=== PATIENT | female | born 2000 | race African-American/Black ===

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

== ENCOUNTER 2020-04-05 04:33 | Emergency (ER) | payer OTHER ==
[~2020-04-05] VITALS: Ht 170.2 cm; Wt 79.1 kg
[~2020-04-05 04:33] MED LIST: MACR100C43 PO; PYRI1TAB5 PO
[2020-04-05 05:30] VITALS: BP 135/77
--- NOTE | 2020-04-06 14:04 | ECGEPIP ---
[facility] - ED Test Date: 2020-04-05 Pat Name: SATNAM BRIONES Department: Room: - Gender: Female Envelope Folder: RADHA : 2000 Requested By: KI MORELOS Order Number: [id number] Reading MD: Abimbola Hamilton Measurements Intervals [place] Rate: 84 P: 7 WA: 121 QRS: 69 QRSD: 80 T: 39 QT: 338 QTc: 402 Interpretive Statements SINUS RHYTHM baseline artifact may affect interpretation NO PRIOR Electronically Signed on 04-06-2020 14:04:22 EST by Abimbola Hamilton
== END 2020-04-05 05:56 | disposition home or self-care (01) ==
LOC: M ED 04:33 → EEVIPCON 04:33 → M ED 05:56
DX: U07.1 COVID-19 (principal)
CPT/HCPCS: 93005; 99284; U0003

== ENCOUNTER 2020-10-07 22:05 | Outpatient (CLI) | payer OTHER ==
[~2020-10-07] VITALS: Ht 170.2 cm; Wt 77.1 kg
[2020-10-07 22:17] VITALS: BP 120/71
[2020-10-07] MEDS ORDERED: PREN29CH2 PO (22:26)
[2020-10-07] MEDS ORDERED: IRON27TA2 PO (22:26)
[2020-10-07 23:14] VITALS: BP 100/55
--- NOTE | 2020-10-07 23:24 | IPNPDOC ---
Text Note Date of Service The patient was seen on 10/07/20. NOTE 20 yo at 24+0 weeks gestation presents to L&D with the complaint of lower pelvic pain on the right side that is dull and has been present since about 1300 today. She reports she has had this pain earlier in and outside of . She denies any other symptoms whatsoever. Specific symptoms denied include fevers/chills, SOB, recent intercourse, chest pain, dysuria, n/v, constipation, anorexia, vaginal bleeding, vaginal discharge, dysuria, diarrhea, or headaches. Chaperoned by RN Vitals - VSS, afebrile, normotensive, non tachycardic General - AAOX3, sitting up in bed, pleasant and conversant, NAD Abdomen - gravid uterus appropriate size for gestational age, no fundal tenderness. No tenderness to palpation anywhere in the abdomen Extremities - No edema Cervix - Refused cervical exam FHR tracing - appropriate for gestational age. No decels. No ctx on toco. Bedside TAUS - Viable SIUP in breech presentation. +FCA measured at 150 bpm. +gross movement. Placenta posterior with no evidence of abruption. Cervical length appeared to be >3.5cm with no funneling or dynamic changes. UA - Unremarkable Suspect round ligament pain. No evidence of labor or infection. No evidence of an acute intraabdominal process. Reassuring status for gestational age. Recommended tylenol and heating pads for symptoms. Discharged home with return precautions. Follow up at next regular appointment. Return to care sooner for worsening symptoms or any other urgent concerns. ALl questions answered. 30 minutes of patient care Fadumo Hoyos, I+O Fadumo OZUNA, I+O Vital Signs Date Time Temp Pulse Resp B/P (MAP) Pulse Ox O2 Delivery O2 Flow Rate FiO2 10/07/20 23:14 70 16 100/55 (70) 10/07/20 22:17 98.4 98 Room Air GIUSEPPE LOVE DO October 07, 2020 23:24
== END 2020-10-07 23:15 | disposition home or self-care (01) ==
LOC: M LDO 22:05
PROVIDERS: ATTEND Obstetrics & Gynecology
DX: O26.892 Other specified pregnancy related conditions, second trimester (principal); Z3A.24 24 weeks gestation of pregnancy; R10.2 Pelvic and perineal pain
CPT/HCPCS: 76815; 81001; G0378; G0463

== ENCOUNTER 2020-12-08 11:48 | Outpatient (CLI) | payer OTHER ==
[~2020-12-08] VITALS: Ht 170.2 cm; Wt 81.5 kg
[~2020-12-08 11:48] MED LIST changes: +IRON27TA2 PO; +PREN29CH2 PO
[2020-12-08 11:59] VITALS: BP 125/71
[2020-12-08 13:41] LABS: APPEARANCE, URINE CLEAR (CLEAR); BACTERIA, URINE AUTO 1+ (NEGATIVE); BILIRUBIN, URINE AUTO NEGATIVE (NEGATIVE); BLOOD, URINE BLOOD NEGATIVE (NEGATIVE); COLOR, URINE STRAW (YELLOW); GLUCOSE, URINE (UA) AUTO NEGATIVE (NEGATIVE); KETONE, URINE AUTO NEGATIVE (NEGATIVE); LEUKOCYTE ESTERASE, URINE AUTO NEGATIVE (NEGATIVE); NITRITE, URINE AUTO NEGATIVE (NEGATIVE); PROTEIN, URINE AUTO NEGATIVE (NEGATIVE); RBC, URINE AUTO 0 /HPF (0-3); SPECIFIC GRAVITY URINE AUTO 1.003 (1.002-1.035); SQUAMOUS EPITHELIAL CELL UR AU 1 /HPF (0-6); UROBILINOGEN, URINE AUTO 0.2 mg/dL (0.0-2.0); WBC, URINE AUTO 1 /HPF (0-3)
--- NOTE | 2020-12-08 17:58 | IPNPDOC ---
Subjective Date Seen The patient was seen on 12/08/20. Subjective Chief Complaint/HPI Pt is a 20yo G 1P0 at 32w6d by LMP c/w 9wk US, ALEXANDER 11 Sep presents to triage with generalized complaints of low back pain/cramping and intermittent pain/numbness in her thighs/buttocks. She also describes lower abdominal cramping which has been occurring intermittently throughout the past several weeks. She was given a belly band yesterday and states this provides some improvement. She is unsure if she is having contractions, and is unsure how frequently the pain occurs. States it is spontaneous and it is not occurring right now. She denies LOF, VB or discharge. +GFM *Of note, pt reported to RN that she 'does not want to be anymore'. General: Reports: Normal Appetite; Denies: Chills, Night Sweats, Fatigue, Malaise Constitutional: Denies: Chills, Fever, Night Sweats Pulmonary: Denies: Dyspnea, Cough Cardiovascular: Denies: Chest Pain, Palpitations, Orthopnea, Paroxysmal Noc. Dyspnea, Lt Headedness Gastrointestinal: Denies: Nausea, Vomiting, Abdominal Pain, Diarrhea, Constipation Genitourinary: Denies: Dysuria, Frequency, Incontinence, Retention Neurological: Reports: Numbness Psych: Reports: Mood Normal; Denies: Depression, Memory Issues Objective Physical Examination General Exam: Positive: Alert, No Acute Distress Chest Exam: Positive: Normal air movement Heart Exam: Positive: Rate Normal Abdomen Exam: Positive: Soft; Negative: Tenderness Female Exam: Positive: Nl Ext Genitalia, Discharge (small amount of milky white discharge. Wet prep + for clue cells. Attempted cervical exam - pt did not tolerate ); Negative: Lesions, Odor, Tenderness Psych Exam: Positive: Mental status NL, Mood NL, Oriented x 3 Other physical findings FHT: cat 1, normal baseline with + accels, no decels. No contractions on tocometer SVE: attempted, pt very anxious and unable to tolerate exam. Unable to complete cervical check Assessment /Plan Assessment 20yo at 32w6d presenting with generalized pain - low back pain, leg pain, abdominal cramping. FHT reassurring, no ctx on monitor. UA and wet prep/JUAN LUIS obtained. Pt wit + clue cells. JUAN LUIS and UA neg. Attempted SVE, pt does not tolerate exams. Overall low concern for labor at this time. Will treat for BV and provide flexeril for low back pain. Encouraged patient to continue hydrating and to follow up on Friday as sheduled for GS (for IUGR). US performed yesterday in clinic by me, no indication to repeat today. Pt's mother at bedside. Discussed concerns regarding patient's inability to tolerate exams and how she will tolerate labor when it occurs. Patient denies any hx of sexual abuse, simply has a fear of pain. Encouraged them to look into birthing classes/meditation/etc. Pt may also want to consider a wig comber. Pt to follow up as scheduled. Plan/VTE VTE Prophylaxis Ordered?: No VTE Exclusion Mechanical Proph: Other VS, I&O, 24H, Fishbone Vital Signs/I&O Vital Signs Date Time Temp Pulse Resp B/P (MAP) Pulse Ox O2 Delivery O2 Flow Rate FiO2 12/08/20 11:59 97.1 86 16 125/71 (89) Room Air Laboratory Data 24H LABS Laboratory Tests 2 12/08/20 13:18: Urine Color STRAW, Urine Appearance CLEAR, Urine pH 7.0, Urine Specific Tangent 1.003, Urine Protein NEGATIVE, Urine Glucose (Auto)(UA) NEGATIVE, Urine Ketones (Auto) NEGATIVE, Urine Blood NEGATIVE, Urine Nitrite NEGATIVE, Urine Bilirubin NEGATIVE, Urine Urobilinogen 0.2, Urine Leukocyte Esterase (Auto) NEGATIVE, Urine WBC (Auto) 1, Urine RBC (Auto) 0, Urine Hyaline Casts (Auto) 0, Urine Bacteria (Auto) 1+H, Urine Squamous Epithelial Cells 1, Urine Sperm (Auto) REGINO RODRIGUEZ M.D. Dec 08, 2020 17:58
== END 2020-12-08 15:00 | disposition home or self-care (01) ==
LOC: M LDO 11:48
PROVIDERS: ATTEND Obstetrics & Gynecology
DX: O26.893 Other specified pregnancy related conditions, third trimester (principal); M54.5 Low back pain; R25.2 Cramp and spasm; Z3A.32 32 weeks gestation of pregnancy; O36.5930 Maternal care for other known or suspected poor fetal growth, third trimester, not applicable or unspecified
CPT/HCPCS: 59025; 81001; G0378; G0463

== ENCOUNTER → 2020-12-12 | Outpatient (CLI) | payer OTHER ==
--- NOTE | 2020-12-12 16:35 | REP ---
INDICATION: PREG, GROWTH. COMPARISON: None. TECHNIQUE: Transabdominal scanning FINDINGS: Multiple ultrasonographic images of the gravid uterus shows a single living intrauterine gestation in the cephalic presentation. Doppler interrogation of the heart shows a heart rate of 139 beats per minute. The placenta is a left lateral and not low-lying. The cervix measures 3 cm in length and is closed. The subjective amniotic fluid volume is low normal. The calculated amniotic fluid index is 8.7 with an expected range 8.2 to 24.6. BPD: 7.8 cm 31 weeks 3 days HC: 28.1 cm 30 weeks 5 days AC: 27.7 cm 31 weeks 6 days FL: 6 cm 31 weeks 3 days The estimated weight is 1787 g which is less than the 3rd percentile for a 33 week 3 day gestational age. IMPRESSION: Limited OB ultrasound showing a single living intrauterine gestation as described above with an estimated gestational age of 31 weeks 3 days via composite criteria and an estimated date of delivery of 02/10/2021 by today's exam. <Electronically signed by Daniel Cabello > 12/12/20 0835
== END ==
LOC: M RAD 14:41
PROVIDERS: ATTEND Registered Nurse Maternal Newborn
DX: Z36.4 Encounter for antenatal screening for fetal growth retardation (principal); Z3A.31 31 weeks gestation of pregnancy

== ENCOUNTER → 2021-01-01 | Outpatient (CLI) | payer OTHER ==
--- NOTE | 2021-01-01 15:20 | REP ---
INDICATION: DECREASED MOVEMENT. TECHNIQUE: Transabdominal scanning FINDINGS: Multiple ultrasonographic images of the gravid uterus shows a single living intrauterine gestation in the cephalic presentation. Doppler interrogation of the heart shows a heart rate of 127 beats per minute. The subjective amniotic fluid volume is within normal limits. The calculated amniotic fluid index is 12.1 within expected range 7.6 to 24.8. The placenta is left lateral and not low lying. The cervix measures 3.3 cm in length and is closed. Doppler interrogation of the umbilical artery shows an A\B ratio of 2.68 and 2.45 both are within the normal range. biophysical profile score is 2 for breathing, 2 for movement, 2 for tone, and 2 for amniotic fluid volume giving a sum total of 8/8. IMPRESSION: Limited OB ultrasound and biophysical profile as described above. <Electronically signed by Daniel Cabello > 01/01/21 [id number]
== END ==
LOC: M RAD 14:26
PROVIDERS: ATTEND Obstetrics & Gynecology
DX: Z36.89 Encounter for other specified antenatal screening (principal); Z3A.36 36 weeks gestation of pregnancy

== ENCOUNTER 2021-01-12 16:04 | Inpatient (IN) | payer OTHER ==
[2021-01-12] VITALS (7 sets, daily range): BP systolic 120–131; BP diastolic 64–88
[~2021-01-12] VITALS: Ht 170.2 cm; Wt 86.2 kg
[2021-01-12] MEDS ORDERED: HOME MED LIST COMPLETE! XX SCH (18:40)
[2021-01-12] MEDS ORDERED: OXYTOCIN DRIP 30 UNITS in IV 1 EA IV PRN ×4 (18:50)
[2021-01-12] MEDS ORDERED: OXYTOCIN INJ 10 UNITS/ML VIAL (J2590) IV PRN (18:50)
[2021-01-12] MEDS ORDERED: METHYLERGONOVINE MALEATE 0.2 MG/ML VIAL (J2210) IM PRN (18:50)
[2021-01-12] MEDS ORDERED: LACTATED RINGER'S 1000 ML IV ONE (18:50)
[2021-01-12 20:20] LABS: HEMATOCRIT 33.3 % (36.0-47.0); HEMOGLOBIN 10.7 g/dl (12.0-15.5); MEAN CORPUSCULAR HEMOGLOBIN 26.7 pg (27.0-33.0); MEAN CORPUSCULAR HGB CONC 32.1 g/dl (32.0-36.5); PLATELET COUNT, AUTOMATED 316 10^3/uL (150-450); RED BLOOD COUNT 4.01 10^6/uL (4.00-5.40); WHITE BLOOD COUNT 6.7 10^3/uL (4.0-10.0)
--- NOTE | 2021-01-12 20:44 | HPEPDOC ---
Obstetrical History & Physical General Date of Admission Item Value Date Time White Blood Count 6.7 10^3/uL 01/12/212010 Red Blood Count 4.01 10^6/uL 01/12/212010 Hemoglobin 10.7 g/dl L 01/12/212010 Hematocrit 33.3 % L 01/12/212010 Mean Corpuscular Volume 83.0 fl 01/12/212010 Mean Corpuscular Hemoglobin 26.7 pg L 01/12/212010 Mean Corpuscular Hemoglobin Concent 32.1 g/dl 01/12/212010 Red Cell Distribution Width 13.2 % 01/12/212010 Platelet Count 316 10^3/uL 01/12/212010Jan 12, 2021 at 16:04 Primary Care Physician: Hi Jones MD History of Present Illness 01/12/21 1930 hours 20 y.o G1 PO AT 37.6 WEEKS HISTORY UNCOMPLICATED IUGR WITH LAST US INDICATED FETUS AT 2% TILE FOR GROWTH WITH BPP AT 12/24 LMP 04/22/2020 EDC 01/27/21 BY US AT 9.1 WEEKS . PATIENT SCHEDULED FOR IOL Chief Complaint: Other (IUGR) Information Provided By: Patient Age: 20 : 1 Term: 0 Pre-term: 0 Abortions: 0 Livin Care Care: Good Care Number of Visits: 9 Dating Final EDC: Jan 27, 2021 Final EDC for Daily Update: Jan 27, 2021 Final EDC by: LMP LMP: Apr 22, 2020 1st Trimester Date: Jun 27, 2020 Weeks + Days: 9.1 Estimated Date of Confinement: Jan 27, 2021 Antepartum Course Diagnos(e)s UNCOMPLICATED IUGR AT TERM Height (inches): 67 Pre- weight (lbs.): 163 Admission Weight (lbs.): 189 Change in Weight (lbs.): 26 Past Medical History Past Obstetrical History : Past Obstetrical History: [employer]GER History: History of STD (CHLAMYDIA X 3 ) Past Medical History Surgical History: Denies/None Family History Significant Family History: No pertinent family hx Social History Marital Status: Family situation: Spouse/partner home Psychosocial History: No pertinent psych hx * Smoker: non-smoker Alcohol: Denies Drugs: denies Abuse Violence Screening Have you been hit/kicked/slapp: No Have you been sexually assault: No Imunizations Tdap status: current Influenza Status: current Allergies Coded Allergies: No Known Allergies (Unverified , 04/05/20) Medications Scheduled Ferrous Gluconate (Iron) 236 Mg Tablet, 1 TAB PO DAILY No115/Iron/Folic Acid ( 19 Chewable Tablet) 1 Each Tab.chew, 1 TAB PO DAILY Physical Examination Physical Examination GENERAL: Alert and oriented times three. BREAST: . ABDOMEN: Gravid and non-tender to touch. FETUS: Is vertex (VTX) by sterile vaginal examination (SVE), fetus is vertex (VTX) by Robert. HEART RATE: Regular rate and rhythm. LUNGS: Clear to auscultation (CTA). EXTREMITIES: No edema. No clonus. Deep tendon reflexes (DTRs) + . Other physical findings NO ACUTE DISTRESS, EFM CATEGORY 1 NO CONTRACTIONS HEENT NORMOCEPHALIC ATRAUMATIC NECK FULL RANGE MOTION PERRLA CHEST CLEAR TO BASES HRR DISTAL PULSES SYMMETRICAL CLEAR NO WHEEZE NO RHONCHI, BACK RCVA TENDERNESS ABDOMEN GRAVID SF HEIGHT 38 CM VERTEX 4 QUADRANTS BOWEL SOUNDS NO EDEMA NO URGE NO FREQUENCY NO NVDC Vital Signs/I&O Vital Signs Date Time Temp Pulse Resp B/P (MAP) Pulse Ox O2 Delivery O2 Flow Rate FiO2 01/12/21 16:57 98.0 86 16 122/64 (83) Laboratory Data 24H LABS Laboratory Tests 2 01/12/21 18:47: Serology Scanned Report Hepatitis B Testing Pertinent Laboratoy Data Blood Type: A+ RBC Antibody Screen: Negative HIV: Negative Hepatitis B: Negative Rapid Plasma Reagin: Nonreactive Rubella: Immune Varicella: Immune Chlamydia/Gonorrhea: Negative Group B Streptococcus: Negative Cystic Fibrosis: Negative Anatomy Ultrasound Ultrasound Date: Jan 12, 2021 Placenta Location: Anterior Normal Anatomy: Yes Estimated Weight (grams): 2429 Other Ultrasounds REVIEWED 09/14/2020. 11/10/2020.12/27/2020.01/05/21 ALL DEMONSTRATE SGA Assessment/Plan Assessment is a -year-old (G) para (P)--- at + weeks by -week ultrasound. Presents to Labor and Delivery (L&D) . Plan Admit and orient. Ct Scan Tech and consent. Diet: . Group B Streptococcus (GBS) [negative]. Labs and intravenous (IV) per unit protocol. Counseled on Pitocin and induction of labor (IOL). Lactated Ringers (LR): Bolus mL, then at mL/hr. Anticipate [normal spontaneous delivery ()]. C-S as appropriate. Hi Jones MD Jan 12, 2021 20:42
[2021-01-12] MEDS: OXYTOCIN DRIP 30 UNITS in IV 1 EA IV SCH (20:58)
[2021-01-12] MEDS: LR 1,000 ML IV SCH (20:59)
[2021-01-12 21:20] LABS: CREATININE,RANDOM URINE 34.9 MG/DL; TOTAL PROTEIN,RANDOM URINE 6.2 MG/DL (0.0-12.0)
[2021-01-12] MEDS ORDERED: miSOPROStol 25MCG 1/4 TABLET PO SCH (22:00)
[2021-01-12 22:36] LABS: ALT/SGPT 21 U/L (12-78); BILIRUBIN,TOTAL 0.4 MG/DL (0.2-1.0); CREATININE FOR GFR 0.65 MG/DL (0.55-1.30); GLOMERULAR FILTRATION RATE > 60.0 (>60); LDH LACTATE DEHYDROGENASE 151 U/L (84-246); URIC ACID 2.6 MG/DL (2.6-6.0)
[2021-01-12] MEDS ORDERED: miSOPROStol 25MCG 1/4 TABLET PO ONE (23:00)
[2021-01-12] MEDS ORDERED: BUTORPHANOL 2 MG/ML INJ (J0595) IV ONE (23:00)
[2021-01-12] MEDS ORDERED: PROMETHAZINE INJ 25 MG/ML VIAL (J2550) IM ONE (23:00)
[2021-01-13] VITALS (27 sets, daily range): BP systolic 106–141; BP diastolic 65–97
[2021-01-13] MEDS ORDERED: miSOPROStol 25MCG 1/4 TABLET PO ONE (02:10)
--- NOTE | 2021-01-13 06:56 | IPNPDOC ---
Text Note Date of Service The patient was seen on 01/13/21. NOTE REVIEW ALL NIGHT CATEGORY 1 STRIP HAD 2 MISOPROSTOL HAD NEGATIVE GUZZLER BUILDER PLAN BR [place] THEN EXAMINATION TO DETERMINE NEXT IOL PROCESS. SAFE TO PROCEED VS,Fadumo, I+O VS, Fadumo, I+O Laboratory Tests 01/12/21 20:11 Vital Signs Date Time Temp Pulse Resp B/P (MAP) Pulse Ox O2 Delivery O2 Flow Rate FiO2 01/13/21 05:28 96.8 01/13/21 05:26 71 16 126/83 (97) I&O- Last 24 Hours up to 6 AM 01/13/21 05:59 Intake Total 1000 ml Balance 1000 ml Hi Jones MD Jan 13, 2021 06:54
--- NOTE | 2021-01-13 06:56 | IPNPDOC ---
Text Note Date of Service Item Value Date Time Creatinine 0.65 MG/DL 01/12/212010 Glomerular Filtration Rate > 60.0 01/12/212010 Uric Acid 2.6 MG/DL 01/12/212010 Total Bilirubin 0.4 MG/DL 01/12/212010 Aspartate Amino Transf (AST/SGOT) 23 U/L 01/12/212010 Alanine Aminotransferase (ALT/SGPT) 21 U/L 01/12/212010 Lactate Dehydrogenase 151 U/L 01/12/212010 The patient was seen on 01/12/21. NOTE reviewed contraction stress test negative active fetus therefore d/c wait and start misoprostol for cervical ripening and intermittent monitoring expressed understanding VS,Fishbone, I+O VS, Fishbone, I+O Laboratory Tests 01/12/21 20:11 Vital Signs Date Time Temp Pulse Resp B/P (MAP) Pulse Ox O2 Delivery O2 Flow Rate FiO2 01/12/21 21:15 82 16 120/76 (91) 01/12/21 16:57 98.0 Hi Jones MD Jan 12, 2021 22:18
--- NOTE | 2021-01-13 09:36 | IPNPDOC ---
Obstetrical Progress Note Date of Service Jan 13, 2021 Subjective patient resting comfortably in bed. Reports occasional, painful contractions but is otherwise without complaint. Requesting early epidural. Objective Vital Signs Date Time Temp Pulse Resp B/P (MAP) Pulse Ox O2 Delivery O2 Flow Rate FiO2 01/13/21 05:28 96.8 01/13/21 05:26 71 16 126/83 (97) Assessment Heart Rate (FHR): 120 Variability: Moderate Accelerations: None Decelerations: None Heart Rate Tracing: Category I Tocometer Contractions: Yes Frequency: irregular, greater than 10 min/apart Sterile Vaginal Examination Dilation: 1cm Effacement (%): 50% Station: -3 Cervical Consistency: Firm Cervical Position: Posterior Postion/Presentation: Cephalic presentation (based on Dec growth US) Assessment and Plan Status: Reassuring Group B Streptococcus: Negative Anticipate: Vaginal Delivery Additional Comments 21yo at 38w0d by LMP admitted for IOL secondary to IUGR <3% with normal d opplers. She is s/p 2 doses of cytotec overnight. SVE this AM unchanged at 150/-3, very posterior. Pt does not tolerate exams well. Pt and FOB appear frustrated this AM with progress thus far and have questions about why they are here. Reviewed findings of IUGR <3% and increased risks of stillbirth in FGR infants. Reviewed methods for cervical ripening and for IOL, and discussed expectations for timing of delivery when initiating IOL course with cervical ripening. Discussed that this can be a several day process and that patient should try to rest as much as possible. Unable to place balloon at this time for ripening due to discomfort with exams. Will continue ripening with cytotec for now. Offered IV pain meds vs. early epidural for management of pain, however noted that early epidural will confine patient to the bed as she will be unable to ambulate after placement. Pt voiced understanding and states she will wait for now. REGINO RODRIGUEZ M.D. Jan 13, 2021 09:36
[2021-01-13] MEDS: miSOPROStol 25MCG 1/4 TABLET PO SCH ×2 (09:44→14:34)
--- NOTE | 2021-01-13 19:17 | IPNPDOC ---
Obstetrical Progress Note Date of Service Jan 13, 2021 Subjective Pt resting comfortably in bed, father of baby and mom at bedside. Just finished eating dinner and states she would like to shower. Feeling some contraction pain. Denies LOF, VB or discharge. +GFM Objective Vital Signs Date Time Temp Pulse Resp B/P (MAP) Pulse Ox O2 Delivery O2 Flow Rate FiO2 01/13/21 18:36 97.9 59 16 121/65 (83) Assessment Heart Rate (FHR): 130 Variability: Moderate Accelerations: Positive Decelerations: None Heart Rate Tracing: Category I Tocometer Contractions: Yes Frequency: regular (q3min) Sterile Vaginal Examination Cervical Consistency: Medium (unable to fully assess cervix due to patient discomfort with exam. ) Assessment and Plan Status: Reassuring Group B Streptococcus: Negative Anticipate: Vaginal Delivery Additional Comments 21yo at 38w0d by LMP admitted for IOL secondary to IUGR <3% with normal dopplers. She is s/p 4 doses of cytotec. SVE difficult to assess due to patient discomfort. Offered to have patient shower, and then consider getting epidural so that I may fully assess her and could then proceed with DLFB and would recommend adding pitocin. Pt in agreement with this plan. Pt to notify nurse when done with shower and will begin bolus for epidural REGINO RODRIGUEZ M.D. Jan 13, 2021 19:17
[2021-01-13] MEDS ORDERED: FENTANYL 2MCG/ML ROPIVACAINE 0.2% IN 0.9% NACL 100ML IVBAG As Ordered ONE (19:59)
[2021-01-13] MEDS ORDERED: LACTATED RINGER'S 1000 ML IV PRN (20:55)
[2021-01-13] MEDS ORDERED: REFRIGERATOR IV KEYS XX PRN (20:55)
[2021-01-13] MEDS ORDERED: EPIDURAL COMMENT XX SCH (20:55)
[2021-01-13] MEDS ORDERED: diphenhydrAMINE 50MG/ML VIAL (J1200) IV PRN (20:55)
[2021-01-13] MEDS ORDERED: EPIDURAL/PCA KEYS XX PRN (20:55)
[2021-01-13] MEDS ORDERED: ONDANSETRON 4MG/2ML VIAL IV PRN (20:55)
[2021-01-13] MEDS ORDERED: NALOXONE INJ 0.4MG/1ML VIAL (J2310 PER 1MG) IV PRN (20:55)
[2021-01-13] MEDS ORDERED: ePHEDrine SULFATE 25 MG/5 ML(5MG/ML) SYRINGE IV PRN (20:55)
--- NOTE | 2021-01-13 21:16 | IPNPDOC ---
Obstetrical Progress Note Date of Service Jan 13, 2021 Subjective Patient resting comfortably in bed with epidural. Ready to attempt balloon placement and pitocin. Denies LOF, VB or discharge. +GFM Objective Vital Signs Date Time Temp Pulse Resp B/P (MAP) Pulse Ox O2 Delivery O2 Flow Rate FiO2 01/13/21 20:34 64 138/86 (103) 01/13/21 20:34 97.9 18 Assessment Heart Rate (FHR): 120 Variability: Moderate Accelerations: Positive Decelerations: None Heart Rate Tracing: Category I Tocometer Contractions: Yes Frequency: irregular Sterile Vaginal Examination Dilation: 1cm Effacement (%): 50% Station: -3 Cervical Consistency: Medium Cervical Position: Posterior Postion/Presentation: Cephalic presentation Assessment and Plan Status: Reassuring Anticipate: Vaginal Delivery Additional Comments 21yo at 38w0d by LMP admitted for IOL secondary to IUGR <3% with normal dopplers. She is s/p 4 doses of cytotec. Pt now comfortable with epidural. DLFB placed at 2100. Will add pitocin as second agent once adequate tracing obtained. All questions answered. REGINO RODRIGUEZ M.D. Jan 13, 2021 21:16
[2021-01-13] MEDS ORDERED: ACETAMINOPHEN TAB 650MG DOSE (2X325MG) PO PRN (21:25)
[2021-01-13] MEDS: LR 1,000 ML IV SCH (21:37)
[2021-01-13] MEDS: OXYTOCIN DRIP 30 UNITS in IV 1 EA IV SCH (21:42)
[2021-01-14] VITALS (87 sets, daily range): BP systolic 108–184; BP diastolic 66–116
[2021-01-14] MEDS: FENTANYL/ROPIVACAINE/NACL BAG 100 ML EPIDURAL SCH ×2 (04:10→14:45)
[2021-01-14] MEDS: LR 1,000 ML IV SCH ×3 (04:11→15:11)
--- NOTE | 2021-01-14 05:17 | IPNPDOC ---
Obstetrical Progress Note Date of Service Jan 14, 2021 Subjective Pt resting comfortably with epidural. No complaints. Pt's mother at bedside. Objective Vital Signs Date Time Temp Pulse Resp B/P (MAP) Pulse Ox O2 Delivery O2 Flow Rate FiO2 01/14/21 04:40 57 18 132/79 (96) 01/14/21 04:11 98.0 Assessment Heart Rate (FHR): 130 Variability: Moderate Accelerations: None Decelerations: Other (occasional spontaneous decels that resolve with position changes) Heart Rate Tracing: Category II Tocometer Contractions: Yes Frequency: irregular Assessment and Plan Anticipate: Vaginal Delivery Additional Comments 21yo at 38w0d by LMP admitted for IOL secondary to IUGR <3% with normal dopplers. She is s/p 4 doses of cytotec for cervical ripening. Pt comfortable with epidural. DLFB placed at 2100, pitocin added as dual agent and currently at 10mU. DLFB still firmly in place. Plan for removal at 12 hrs if still in place at that time and discussed AROM at that time if possible. FHT overall reassurring with baseline in 130's, mod variability. Occasional spontaneous decelerations that occur when patient lies on her right side. Resolve with position changes. Will continue to proceed with IOL. REGINO RODRIGUEZ M.D. Jan 14, 2021 05:17
--- NOTE | 2021-01-14 10:44 | IPNPDOC ---
Text Note Date of Service The patient was seen on 01/14/21. NOTE 01/14/2021 review to date patient at 39 weeks iol for IUGR to date had MARKER MACHINE negative had 4 lots of misoprostol, Pitocin at 14 munits and 12 hours of cook's catheter. removed cook's catheter pelvic examination vertex high not applied to cervix still 1 cm posterior sift 50% effaced come show possibly from balloon. plan of care increase Pitocin recheck 4 hours if no change primary cs patient expressed understanding of plan of care . 20 MINUTE DISCUSSION VS,Fishbone, I+O VS, Fishbone, I+O Vital Signs Date Time Temp Pulse Resp B/P (MAP) Pulse Ox O2 Delivery O2 Flow Rate FiO2 01/14/21 09:09 60 18 121/82 (95) 01/14/21 07:17 97.8 I&O- Last 24 Hours up to 6 AM 01/14/21 06:00 Intake Total 5870 ml Output Total 3850 ml Balance 2020 ml Hi Jones MD Jan 14, 2021 10:44
[2021-01-14] MEDS ORDERED: OXYTOCIN DRIP 30 UNITS in IV 1 EA IV PRN (10:45)
[2021-01-14] MEDS ORDERED: METHYLERGONOVINE MALEATE 0.2 MG/ML VIAL (J2210) IM PRN (10:45)
[2021-01-14] MEDS ORDERED: ACETAMINOPHEN 650 MG SUPP PR SCH ×2 (10:45→11:45)
[2021-01-14] MEDS ORDERED: OXYTOCIN INJ 10 UNITS/ML VIAL (J2590) IV PRN (10:45)
[2021-01-14] MEDS ORDERED: ceFAZolin SOD 2 GM in IV 1 EA IV ONE (10:45)
[2021-01-14] MEDS ORDERED: BUPIVACAINE HCL 0.25% 10ML VIAL SC SCH (10:45)
[2021-01-14] MEDS ORDERED: LR 1,000 ML IV SCH ×3 (10:45→17:40)
[2021-01-14] MEDS ORDERED: AZITHROMYCIN INJ 500 MG, VIAL MATE ADAPTER 1 EACH in NS 250 ML IV ONE (10:45)
[2021-01-14] MEDS ORDERED: BICITRA 30ML SOLN UDC PO ONE (10:45)
[2021-01-14] MEDS ORDERED: BUPIVACAINE HCL 0.25% 10ML VIAL SC ONE (11:45)
[2021-01-14 14:08] LABS: HEMATOCRIT 34.9 % (36.0-47.0); HEMOGLOBIN 11.1 g/dl (12.0-15.5); MEAN CORPUSCULAR HEMOGLOBIN 26.6 pg (27.0-33.0); MEAN CORPUSCULAR HGB CONC 31.8 g/dl (32.0-36.5); MEAN CORPUSCULAR VOLUME 83.5 fl (80.0-96.0); PLATELET COUNT, AUTOMATED 289 10^3/uL (150-450); RED BLOOD COUNT 4.18 10^6/uL (4.00-5.40); WHITE BLOOD COUNT 7.2 10^3/uL (4.0-10.0)
[2021-01-14] MEDS ORDERED: FENTANYL 2MCG/ML ROPIVACAINE 0.2% IN 0.9% NACL 100ML IVBAG As Ordered ONE (14:43)
--- NOTE | 2021-01-14 15:05 | IPNPDOC ---
Text Note Date of Service Item Value Date Time White Blood Count 7.2 10^3/uL 01/14/21 1400 Red Blood Count 4.18 10^6/uL 01/14/21 1400 Hemoglobin 11.1 g/dl L 01/14/21 1400 Hematocrit 34.9 % L 01/14/21 1400 Mean Corpuscular Volume 83.5 fl 01/14/21 1400 Mean Corpuscular Hemoglobin 26.6 pg L 01/14/21 1400 Mean Corpuscular Hemoglobin Concent 31.8 g/dl L 01/14/21 1400 Red Cell Distribution Width 13.5 % 01/14/21 1400 Platelet Count 289 10^3/uL 01/14/21 1400 The patient was seen on 01/14/21. NOTE 01/14/21 1400 srom clear fluid cervix anterior 2 tight cm -3 station soft category 1 strip plan repeat exam 1500 if no change planned primary cs VS,Fishbone, I+O VS, Fishbone, I+O Laboratory Tests 01/14/21 14:00 Vital Signs Date Time Temp Pulse Resp B/P (MAP) Pulse Ox O2 Delivery O2 Flow Rate FiO2 01/14/21 14:40 71 119/77 (91) 01/14/21 11:40 98.1 01/14/21 10:40 18 I&O- Last 24 Hours up to 6 AM 01/14/21 06:00 Intake Total 5870 ml Output Total 3850 ml Balance 2020 ml Hi Jones MD Jan 14, 2021 15:03
[2021-01-14] MEDS ORDERED: ACETAMINOPHEN 650 MG SUPP PR ONE (16:00)
[2021-01-14] MEDS ORDERED: NALOXONE INJ 0.4MG/1ML VIAL (J2310 PER 1MG) IV PRN ×2 (16:07)
[2021-01-14] MEDS ORDERED: diphenhydrAMINE 50MG/ML VIAL (J1200) IV PRN (16:07)
[2021-01-14] MEDS ORDERED: METOCLOPRAMIDE INJ 10MG/2ML VIAL (J2765 PER 1) IV PRN (16:07)
[2021-01-14] MEDS ORDERED: NALBUPHINE HCL 10 MG/ML AMP (J2300) IV PRN ×2 (16:07→17:40)
[2021-01-14] MEDS ORDERED: ONDANSETRON 4MG/2ML VIAL IV PRN ×2 (16:07→17:40)
[2021-01-14] MEDS ORDERED: MORPHINE PRES-FREE INJ 10 MG/10 ML VIAL (J2274) As Ordered ONE (16:16)
[2021-01-14] MEDS ORDERED: MIDAZOLAM INJ 2MG/2ML VIAL (J2250 PER 1MG) As Ordered ONE (16:16)
[2021-01-14] MEDS ORDERED: OXYTOCIN INJ 10 UNITS/ML VIAL (J2590) As Ordered ONE ×2 (16:16→16:34)
[2021-01-14] MEDS ORDERED: PHENYLephrine 500MCG 5ML (100MCG/ML) SYRINGE As Ordered ONE (16:26)
[2021-01-14] MEDS ORDERED: dexameTHASONE 4 MG/ML 1ML VIAL (J1100 PER 1MG) As Ordered ONE (16:26)
[2021-01-14] MEDS ORDERED: ONDANSETRON 4MG/2ML VIAL As Ordered ONE (16:35)
[2021-01-14 16:47] LABS: CORD GAS ABE A -7.2; CORD GAS HCO3 A 23.9 MEQ/L; CORD GAS PCO2 A 74.1 mmHg; CORD GAS PH A 7.127 UNITS; CORD GAS PO2 A 18.2 mmHg; CORD GAS SBC A 17.1 MEQ/L; CORD GAS TCO2 A 26.2 MEQ/L
[2021-01-14 16:48] LABS: CORD GAS ABE V -6.4; CORD GAS O2 SAT V 37.5 %; CORD GAS PCO2 V 54.5 mmHg; CORD GAS PH V 7.223 UNITS; CORD GAS SBC V 17.9 MEQ/L; CORD GAS TCO2 V 23.6 MEQ/L
[2021-01-14] MEDS ORDERED: KETOROLAC 60MG 2ML VIAL As Ordered ONE (17:12)
--- NOTE | 2021-01-14 17:28 | IPNPDOC ---
Text Note Date of Service The patient was seen on 01/14/21. NOTE 1500 category 1 strip with intermittent lates evaluation of patient uncontr olled pain cervix soft anterior stretchy 4 cm not well applied to cervix ot -3 station option now continue and evaluate or primary cs patient declined to continue risks of cs discussed hemorrhage infection perforation reoperation remote blood transfusion remote hysterectomy for life threatening bleeding accepts risk signed consent neonatology notified VS,Sushilbone, I+O VS, Dodiee, I+O Laboratory Tests 01/14/21 14:00 Vital Signs Date Time Temp Pulse Resp B/P (MAP) Pulse Ox O2 Delivery O2 Flow Rate FiO2 01/14/21 14:40 71 119/77 (91) 01/14/21 11:40 98.1 01/14/21 10:40 18 I&O- Last 24 Hours up to 6 AM 01/14/21 06:00 Intake Total 5870 ml Output Total 3850 ml Balance 2020 ml Hi Jones MD Jan 14, 2021 17:28
[2021-01-14] MEDS ORDERED: OXYTOCIN 30 UNITS IN 0.9% NaCl 500ML IV BAG (J2590) As Ordered ONE (17:33)
[2021-01-14] MEDS ORDERED: MOM 30ML SUSPENSION UDC PO PRN (17:35)
[2021-01-14] MEDS ORDERED: MEASLES,MUMPS,RUBELLA VACCINE INJ (MMR-II) (90707) SC SCH (17:35)
[2021-01-14] MEDS ORDERED: ACETAMINOPHEN 500 MG TAB PO PRN (17:35)
[2021-01-14] MEDS ORDERED: RHOGAM 300 MCG (1500 IU) INJ (J2790) IM SCH (17:35)
[2021-01-14] MEDS ORDERED: DOCUSATE SODIUM 100MG CAPSULE PO PRN (17:35)
[2021-01-14] MEDS ORDERED: METHYLERGONOVINE MALEATE 0.2 MG TAB PO PRN (17:35)
[2021-01-14] MEDS ORDERED: OXYTOCIN DRIP 30 UNITS in IV 1 EA IV ONE (17:35)
[2021-01-14] MEDS ORDERED: ANUSOL HC CREAM 30GM TOP PRN (17:35)
[2021-01-14] MEDS ORDERED: SIMETHICONE 80MG CHEW TAB PO PRN (17:35)
[2021-01-14] MEDS ORDERED: PERCOCET 5MG/325MG TAB PO PRN (17:35)
[2021-01-14] MEDS ORDERED: ACETAMINOPHEN TAB 650MG DOSE (2X325MG) PO PRN (17:35)
[2021-01-14] MEDS ORDERED: fentaNYL 100 MCG/2 ML INJECTION (J3010) IV PRN (17:40)
--- NOTE | 2021-01-14 18:08 | RO ---
OPERATIVE NOTE DATE OF OPERATION: 01/14/2021 PREOPERATIVE DIAGNOSIS: Small for gestational age/IUGR uncomplicated. POSTOPERATIVE DIAGNOSIS: SGA/IUGR uncomplicated, failure to progress, maternal distress. OPERATION PROPOSED: Primary section. OPERATION PERFORMED: Primary section. SURGEON: Hi Jones M.D. SPREADER BOX OPERATOR: Kaitlyn Vargas M.D. for extraction, retraction and visualization without which the procedure could not be completed. ESTIMATED BLOOD LOSS: 400 mL DESCRIPTION OF PROCEDURE: After adequate timeout, prepped and draped in a supine position, Stephenson catheter in the bladder draining clear urine, sequentials in place, Acetaminophen suppository 1300 mg per rectum, appropriate antibiotics preoperatively, a Pfannenstiel incision was made two fingerbreadths above the symphysis pubis, passing through abdominal layers, securing hemostasis, opening the peritoneal cavity. The bladder was reflected down anteriorly, low transverse incision. ARM, draining clear liquor, OT position, left ear anterior, delivered a livebirth male infant weighing 5 lb, 8 oz., 2490 gm., Apgars of 8 and 9 in 1 and 5 minutes respectively, arterial pH 7.21, base excess minus 7.2, venous pH 7.22, base excess minus 6.4. The placenta delivered spontaneously thereafter, sweeping the uterine cavity, was cleaned of membranes and tissue. There were three vessels in the cord. The lower segment was oversewn in the usual fashion, imbricating the second layer and then reperitonealization was performed. With instrument and pad count correct, both ovaries and tubes appeared to be normal. The Mobius which was placed previously was removed. Then the abdomen was closed with running stitch for the peritoneum, the same for the fascia, interrupted for subcu, Marcaine 0.25% 10 mL to the incisional site. Medipore dressing was placed and the patient was sent to recovery in good condition. [facility]
[2021-01-14] MEDS ORDERED: NALBUPHINE HCL 10 MG/ML AMP (J2300) As Ordered ONE (18:20)
[2021-01-14] MEDS ORDERED: LABETALOL 100MG/20ML VIAL IV STA ×3 (18:44→19:19)
[2021-01-14] MEDS ORDERED: LABETALOL 100MG/20ML VIAL As Ordered ONE ×2 (18:45→19:20)
[2021-01-14] MEDS ORDERED: fentaNYL 100 MCG/2 ML INJECTION (J3010) As Ordered ONE (18:53)
[2021-01-14] MEDS ORDERED: IBUPROFEN 600MG TAB PO PRN (19:00)
[2021-01-14] MEDS ORDERED: hydrALAZINE 20MG/ML 1ML VIAL (J0360 PER 20MG) IV STA (19:40)
[2021-01-14] MEDS ORDERED: hydrALAZINE 20MG/ML 1ML VIAL (J0360 PER 20MG) As Ordered ONE (19:42)
--- NOTE | 2021-01-14 20:55 | IPNPDOC ---
Text Note Date of Service Vital Signs Label Value Date Time Pulse 87 01/14/212039 Blood Pressure Assessment 145/91 (109) 01/14/212039 Source Automatic Cuff (NIBP) Pulse 88 01/14/212034 Blood Pressure Assessment 146/93 (110) 01/14/212034 Source Automatic Cuff (NIBP) Bedside Pulse Oximetry 100 % 01/14/212034 Bedside Pulse Oximetry 100 % 01/14/212039 Bedside Pulse Oximetry 100 % 01/14/212029 Bedside Pulse Oximetry 100 % 01/14/212024 Bedside Pulse Oximetry 100 % 01/14/212014 Blood Pressure Assessment 146/95 (112) 01/14/212014 Source Automatic Cuff (NIBP) Blood Pressure Assessment 140/93 (109) 01/14/212019 Source Automatic Cuff (NIBP) Blood Pressure Assessment 134/88 (103) 01/14/212024 Source Automatic Cuff (NIBP) Blood Pressure Assessment 139/92 (108) 01/14/212029 Source Automatic Cuff (NIBP) Vital Signs Label Value Date Time Pulse 87 01/14/212019 Blood Pressure Assessment 140/93 (109) 01/14/212019 Source Automatic Cuff (NIBP) Blood Pressure Assessment 146/95 (112) 01/14/212014 Source Automatic Cuff (NIBP) Pulse 96 01/14/212014 Blood Pressure Assessment 143/93 (110) 01/14/212009 Source Automatic Cuff (NIBP) Pulse 87 01/14/212009 Blood Pressure Assessment 141/92 (108) 01/14/212004 Source Automatic Cuff (NIBP) Blood Pressure Assessment 148/95 (112) 01/14/211999 Source Automatic Cuff (NIBP) Pulse 83 01/14/211999 Bedside Pulse Oximetry 100 % 01/14/211999 Bedside Pulse Oximetry 100 % 01/14/212004 Bedside Pulse Oximetry 99 % 01/14/212009 Bedside Pulse Oximetry 100 % 01/14/212014 Bedside Pulse Oximetry 100 % 01/14/212019 Bedside Pulse Oximetry 99 % 01/14/211954 Blood Pressure Assessment 149/102 (118) 01/14/211954 Source Automatic Cuff (NIBP) Pulse 83 01/14/211954 The patient was seen on 01/14/21. NOTE 01/14/211999 patient pp cs developed sever range bp and started bp protocol. at hydralazine bp came down to mid range and normal range bp. IN REVIEWING SITE THAT WAS USED TO ADMINISTER LABETALOL WAS SITE THAT WAS COMPROMISED IN OR AND SITE RESTART IN OR ON LEFT. AT HAND OVER NURSE DID NOT GIVE TAKE OVER PERSON THAT RIGHT SITE WAS COMPROMISED AND WE DO NOT KNOW HOW MUCH OF INITIAL BP MEDICATION WAS ADSORBED. PRESENTLY PATIENT IS STABLE VS,Fishbone, I+O VS, Fishbone, I+O Laboratory Tests 01/14/21 14:00 Vital Signs Date Time Temp Pulse Resp B/P (MAP) Pulse Ox O2 Delivery O2 Flow Rate FiO2 01/14/21 20:20 87 140/93 (109) 100 01/14/21 20:05 97.3 01/14/21 19:15 20 01/14/21 19:08 Room Air I&O- Last 24 Hours up to 6 AM 01/14/21 06:00 Intake Total 5870 ml Output Total 3850 ml Balance 2020 ml Hi Jones MD Jan 14, 2021 20:51
[2021-01-14] MEDS: KETOROLAC 30 MG/ML 1ML VIAL IV SCH (23:44)
[2021-01-15] VITALS (7 sets, daily range): BP systolic 120–137; BP diastolic 70–91
[2021-01-15] MEDS: KETOROLAC 30 MG/ML 1ML VIAL IV SCH ×2 (05:21→11:03)
--- NOTE | 2021-01-15 07:10 | IPN ---
PROGRESS NOTE DATE: 01/15/2021 AND POSTOP DAY #1: SUBJECTIVE: This lady is a 21-year-old 1 now para 1, had an induction of labor at 38 weeks for an IUGR uncomplicated. She had a primary section livebirth male , 5 pounds, 8 ounces, 2490 grams, Apgars of 8 and 9 at 1 and 5 minutes respectively. Arterial pH 7.12, venous pH 7.22, base excess -6.4. This morning her blood pressure is 136/91, respirations are 16, pulse 70, temperature is 98.0. She had an episode of elevated hypertension in the severe range which she was given Labetalol and a course of Hydralazine. Her blood pressures over the last six to eight hours have been in the mid range area. OBJECTIVE: She is normoreflexic, pupils equal and reactive to light. Distal pulses are symmetric. No DVT, PE or superficial phlebitis. No edema. No headaches. No right upper quadrant pain. Her blood pressure this morning is 136/91, respirations are 16, pulse is 70, temperature is 98.0. Her latest hemoglobin 11.1, hematocrit is 34.9 and platelets are 289,000. The rest of the examination is unremarkable. She is normocephalic, atraumatic. Neck with full range of motion. Pupils equal and reactive to light. Distal pulses are symmetric as mentioned. No DVT, PE or superficial phlebitis. Chest is clear bilaterally to bases. No wheezes or rhonchi. No CVA tenderness. Abdomen is soft, four quadrant bowel sounds are noted. The incision is clean and dry, did not bleed through the incisional dressing. The uterus is 2 below, lochia is moderate. No rashes, lesions or pruritus. No arthralgia or myalgias. No complaint of joint pain. No complaint of cough, wheeze, shortness of breath or dyspnea on exertion. We discussed phlebitis, cystitis, mastitis, endometritis and cellulitis, diet, exercise, pain management, perineal, breast and wound care. In summary, we have a term gestation delivered by primary section of a male infant, had episodic elevated hypertension, now baseline blood pressures are in the mid range level. Will monitor her blood pressures over the next 24 hours if necessary. We may give her Labetalol if they go above the mid range levels. All questions were answered, 20 minute discussion. Patient is clear on the plan of care. cc: Janeen HORTON
[2021-01-15 08:22] LABS: HEMATOCRIT 29.8 % (36.0-47.0); HEMOGLOBIN 9.7 g/dl (12.0-15.5); MEAN CORPUSCULAR HGB CONC 32.6 g/dl (32.0-36.5); PLATELET COUNT, AUTOMATED 285 10^3/uL (150-450); RED BLOOD COUNT 3.59 10^6/uL (4.00-5.40); WHITE BLOOD COUNT 14.3 10^3/uL (4.0-10.0)
[2021-01-15] MEDS: PRENATAL VITAMINS CHEWABLE TABLET PO SCH (08:43)
[2021-01-15] MEDS ORDERED: SLF 3 ML SYR IV PRN (15:50)
[2021-01-15] MEDS ORDERED: IBUPROFEN 600MG TAB PO PRN (19:00)
[2021-01-15] MEDS: PERCOCET 5MG/325MG TAB PO PRN (21:11)
[2021-01-15] MEDS: SLF 3 ML SYR IV SCH (21:53)
[2021-01-16 02:00] VITALS: BP 135/88
[2021-01-16] MEDS: PERCOCET 5MG/325MG TAB PO PRN ×2 (05:32→10:55)
[2021-01-16 06:00] VITALS: BP 139/90
[2021-01-16] MEDS: SLF 3 ML SYR IV SCH (06:00)
[2021-01-16] MEDS ORDERED: IBUP-1022 PO (06:43)
[2021-01-16] MEDS ORDERED: PERCOCET PO (06:43)
--- NOTE | 2021-01-16 06:51 | DS.PDOC ---
Discharge Summary General Date of Admission Jan 12, 2021 at 16:04 Date of Discharge Jan 16, 2021 Discharge Summary COMPLICATIONS/CHIEF COMPLAINT: Induction for IUGR HOSPITAL COURSE: Ms. Kumar is a 21 yo G1 now P1 who underwent an uncomplicated PLTCS on 14Jan2021 after being admitted for IOL on 12Jan2021 for IUGR. She had some elevated BP just before her c section and immediately but she has been normotensive for the last 24 hours. Her postoperative course was otherwise uncomplicated. On her day of discharge she met all appropriate discharge criteria. She was ambulating, voiding, tolerating a regular diet, passing gas, had minimal lochia, and her pain was well controlled with PO pain medications. DISCHARGE MEDICATIONS: Please see below. ALLERGIES: Please see below. PHYSICAL EXAMINATION ON DISCHARGE: VITAL SIGNS: Please see below. GENERAL: Sitting up in bed, AAOX3, NAD ABDOMINAL EXAMINATION: Soft. Fundus firm at U-1. No fundal tenderness. Bandage no longer attached to incision. Incision well appearing. No erythema, induration, or signs of infection or dehiscence. Minimal tenderness to palpation. EXTREMITIES: trace edema PSYCHIATRIC EXAMINATION: Affect appropriate ACTIVITY: Pelvic rest for 6 weeks. No heavy lifting for 6 weeks. DIET: Regular DISCHARGE PLAN: Discharge home DISPOSITION: Discharge home on 16Jan2021. DISCHARGE INSTRUCTIONS: 1. No heavy lifting for 6 weeks. Pelvic rest for 6 weeks. 2. banana ripening room supervisor medication. ITEMS TO FOLLOWUP ON ON OUTPATIENT: 1. banana ripening room supervisor medication at [place] 2. Walk into the [facility] office on for a BP check between 0730 - 1600. DISCHARGE CONDITION: Stable. TIME SPENT ON DISCHARGE: 20 minutes. Vital Signs/I&Os Vital Signs Date Time Temp Pulse Resp B/P (MAP) Pulse Ox O2 Delivery O2 Flow Rate FiO2 01/16/21 06:00 97.7 75 16 139/90 (106) 01/16/21 05:32 Room Air 01/15/21 22:03 98 Laboratory Data Labs 24H Laboratory Tests 2 01/15/21 08:06: Nucleated Red Blood Cells % (auto) 0.0 CBC/BMP Laboratory Tests 01/15/21 08:06 Discharge Medications Scheduled No115/Iron/Folic Acid ( 19 Chewable Tablet) 1 Each Tab.chew, 1 TAB PO DAILY, (Reported) Scheduled PRN Ibuprofen (Ibuprofen) 600 Mg Tablet, 600 MG PO Q6HP PRN for PAIN LEVEL 1-5 Oxycodone/Acetaminophen (Oxycodone-Acetaminophen 5-325) 1 Each Tablet, 1 TAB PO Q4H PRN for MODERATE PAIN (PS 5-7) Allergies Coded Allergies: No Known Allergies (Unverified , 04/05/20) GIUSEPPE LOVE DO Jan 16, 2021 06:51
[2021-01-16] MEDS: PRENATAL VITAMINS CHEWABLE TABLET PO SCH (08:14)
--- NOTE | 2021-01-16 17:24 | IPN ---
PROGRESS NOTE DATE: 01/16/2021 SUBJECTIVE: This patient requested circumcision of their male infant. After discussing risks and benefits of circumcision, the medical and nonmedical indications, the penile block and the aftercare, expressed understanding of penile block, aftercare and bleeding, signed the consent form. All questions were answered, 20 minute discussion. We await clearance by the silver miner blasting.
== END 2021-01-16 14:45 | disposition home or self-care (01) | DRG 773 ==
LOC: M LDI 16:04 → M OBS 01-15 00:06
PROVIDERS: ADMIT Obstetrics & Gynecology; ATTEND Obstetrics & Gynecology
PROC: 3E0P7GC Introduction of Other Therapeutic Substance into Female Reproductive, Via Natural or Artificial Opening (ICD-10-PCS; 2021-01-12)
PROC: 10907ZC Drainage of Amniotic Fluid, Therapeutic from Products of Conception, Via Natural or Artificial Opening (ICD-10-PCS; 2021-01-13)
PROC: 10D00Z1 Extraction of Products of Conception, Low, Open Approach (ICD-10-PCS; principal; 2021-01-14 15:50)
DX: O36.5930 Maternal care for other known or suspected poor fetal growth, third trimester, not applicable or unspecified (principal); Z3A.37 37 weeks gestation of pregnancy; Z37.0 Single live birth; O62.0 Primary inadequate contractions